=== PATIENT | male | born 1975 | race Two or more races ===

== ENCOUNTER 2020-05-01 02:20 | Emergency (ER) | payer OTHER ==
[~2020-05-01] VITALS: Ht 177.8 cm; Wt 95.3 kg
[2020-05-01] MEDS ORDERED: SKELAXIN800 MG PO (08:25)
== END 2020-05-01 08:54 | disposition home or self-care (01) ==
LOC: ER 02:20
DX: S81.022A Laceration with foreign body, left knee, initial encounter (principal); S30.1XXA Contusion of abdominal wall, initial encounter; W17.89XA Other fall from one level to another, initial encounter; Y93.89 Activity, other specified; Y92.098 Other place in other non-institutional residence as the place of occurrence of the external cause; Y99.8 Other external cause status; F10.129 Alcohol abuse with intoxication, unspecified; Z03.818 Encounter for observation for suspected exposure to other biological agents ruled out

== ENCOUNTER 2020-07-18 18:02 | Emergency (ER) | payer OTHER ==
[~2020-07-18] VITALS: Ht 175.3 cm; Wt 83.9 kg
[~2020-07-18 18:02] MED LIST: SKELAXIN800 MG PO
[2020-07-18] MEDS ORDERED: INTESTINEX680 M2 PO (23:39)
[2020-07-18] MEDS ORDERED: AMOX1TAB5 PO (23:39)
== END 2020-07-19 00:26 | disposition home or self-care (01) ==
LOC: ER 18:02
DX: R59.0 Localized enlarged lymph nodes (principal); M54.2 Cervicalgia; R51 Headache